=== PATIENT | female | born 1990 | race Caucasian/White ===

== ENCOUNTER 2017-06-12 16:13 | Outpatient (CLI) | payer OTHER ==
[~2017-06-12] VITALS: Ht 157.5 cm; Wt 73.4 kg
[~2017-06-12 16:13] MED LIST: DEPO-PROVER150 MG/ML IM; IBUPROFEN200 M1 PO; NAPROSYN500 MG PO; TYLENOL EXTRA500 MG PO
[2017-06-12] MEDS ORDERED: PRENATAL TABLE1 EAC3 PO (16:49)
[2017-06-12] MEDS ORDERED: EXCEDRIN EXTRA1 EACH PO (16:50)
[2017-06-12 16:52] VITALS: BP 123/63
[2017-06-13] MEDS ORDERED: IBUPROFEN800 MG PO (13:58)
== END 2017-06-12 17:30 | disposition home or self-care (01) ==
LOC: LDRP-OP 16:13 → 2WEST 16:14 → LDRP-OP 07-07 14:45
DX: O47.1 False labor at or after 37 completed weeks of gestation (principal); Z3A.40 40 weeks gestation of pregnancy
CPT/HCPCS: 59025; G0378

== ENCOUNTER 2017-06-13 03:53 | Inpatient (IN) | payer OTHER ==
[2017-06-13] VITALS (21 sets, daily range): BP systolic 97–129; BP diastolic 53–77
[~2017-06-13] VITALS: Ht 157.5 cm; Wt 74.1 kg
[~2017-06-13 03:53] MED LIST changes: +EXCEDRIN EXTRA1 EACH PO; +PRENATAL TABLE1 EAC3 PO
[2017-06-13 08:53] LABS: EOSINOPHIL (%) 0.2 % (0-5); HEMATOCRIT 34.1 % (36.0-46.0); IMMATURE GRANULOCYTE (%) 0.6 % (0.0-0.7); IMMATURE GRANULOCYTE COUNT 0.1 K/uL; INSTRUMENT ABS NEUTROPHIL CT 8.8 K/uL; LYMPHOCYTE COUNT 1.5 K/uL (1.0-2.8); MCH 30.9 PG (29.0-34.0); MCV 90.9 FL (83-99); MEAN PLAT.VOLUME 10.5 uM^3 (9.5-12.4); MONOCYTE (%) 5.8 % (3-12); MONOCYTE COUNT 0.6 K/uL (0-0.8); NEUTROPHIL COUNT 8.8 K/uL (1.8-6.4); PLATELET COUNT 221 K/uL (156-360); RBC DIS.WIDTH-CV 14.3 % (11.8-14.6); RBC DIS.WIDTH-SD 47.3 % (39-53); RED BLOOD COUNT 3.75 M/uL (3.80-5.20)
[2017-06-13 10:28] LABS: AMPHETAMINE NEGATIVE (500 ng/mL); BARBITURATES NEGATIVE (200 ng/mL); BENZODIAZEPINES NEGATIVE (150 ng/mL); COCAINE NEGATIVE (150 ng/mL); INTERNAL CONTROLS VALID? YES; METHADONE NEGATIVE (200 ng/mL); METHAMPHETAMINE NEGATIVE (500 ng/mL); OPIATES (MORPHINE) NEGATIVE (100 ng/mL); OXYCODONE NEGATIVE (100 ng/mL); PHENCYCLIDINE NEGATIVE (25 ng/mL); PROPOXYPHENE NEGATIVE (300 ng/mL); THC CANNABINOIDS NEGATIVE (50 ng/mL); TRICYCLIC ANTIDEPRESSANTS NEGATIVE (300 ng/mL)
[2017-06-13] MEDS ORDERED: IBUPROFEN800 MG PO (13:58)
[2017-06-14 07:40] VITALS: BP 123/59
[2017-06-14 15:15] VITALS: BP 129/55
[2017-06-14 23:00] VITALS: BP 112/57
[2017-06-15 07:48] VITALS: BP 130/67
== END 2017-06-15 12:00 | disposition home or self-care (01) | DRG 775 ==
LOC: LDRP-OP 03:53 → 2WEST 03:54 → LDRP-OP 07-07 18:06
PROVIDERS: Nurse Practitioner
PROC: 10E0XZZ Delivery of Products of Conception, External Approach (ICD-10-PCS; principal; 2017-06-13)
PROC: 00HU33Z Insertion of Infusion Device into Spinal Canal, Percutaneous Approach (ICD-10-PCS; principal; 2017-06-13)
PROC: 10907ZC Drainage of Amniotic Fluid, Therapeutic from Products of Conception, Via Natural or Artificial Opening (ICD-10-PCS; principal; 2017-06-13)
PROC: 3E033VJ Introduction of Other Hormone into Peripheral Vein, Percutaneous Approach (ICD-10-PCS; principal; 2017-06-13)
PROC: 3E0R3CZ (ICD-10-PCS; principal; 2017-06-13)
DX: O48.0 Post-term pregnancy (principal); Z3A.41 41 weeks gestation of pregnancy; Z37.0 Single live birth; Z86.001 Personal history of in-situ neoplasm of cervix uteri; O99.334 Smoking (tobacco) complicating childbirth; F17.200 Nicotine dependence, unspecified, uncomplicated
CPT/HCPCS: 59025; 80306 90; 85025; C1755; G0378; J3010; J7120